=== PATIENT | female | born 1980 | race Caucasian/White ===

== ENCOUNTER → 2019-07-15 09:30 | Outpatient (BNVA) | payer OTHER, SELFPAY | PROVIDERS: Family Provider Nurse Practitioner Family; Referring Provider Family Medicine; Visit Provider Family Medicine | DX: Z01.419 Encounter for gynecological examination (general) (routine) without abnormal findings (principal); F41.1 Generalized anxiety disorder; Z13.6 Encounter for screening for cardiovascular disorders | CPT/HCPCS: 88175 ==

== ENCOUNTER 2019-08-03 04:40 | Observation (INO) | payer OTHER, SELFPAY ==
[2019-08-03] VITALS (18 sets, daily range): BP systolic 110–145; BP diastolic 56–97; PULSE 60–102; RESP 15–20; TEMP 36.6–36.9; O2SAT 90–100; BMI 34.3
--- NOTE | 2019-08-03 04:55 | US_ITS ---
WS: [id number] RIGHT UPPER QUADRANT ULTRASOUND HISTORY: Pain COMPARISON: None available. Liver: 19.5 cm in length. Liver is moderately enlarged with a slightly irregular surface. No intrahep atic dilatation or mass. Gallbladder: Normally distended gallbladder are numerous mobile stones are present in the lumen. Ther e are several stones at the neck of the gallbladder which may be entrapped. CBD: 0.6 cm Pancreas: Completely obscured by bowel gas. Right kidney: 10.2 cm in length. Normal echogenicity with no mass or hydronephrosis. Aorta and IVC: Unremarkable. No ascites. US/US gall bladder 23240 IMPRESSION: 1. Cholelithiasis with at least one stone entrapped at the gallbladder neck. A t this time there is no evidence for acute cholecystitis or bile duct dilatatio n. 2. Moderate hepatomegaly.
--- NOTE | 2019-08-03 04:55 | W.ED.ABDPA2 ---
Documented by User: Christal Pandya 08/03/19 05:29 HPI - Abdominal Pain General: Chief Complaint: Abdominal Pain Stated Complaint: ABD pain Time Seen by Provider: 08/03/19 04:50 History of Present Illness: HPI narrative: Cat is a nice 39-year-old female who comes in complaining of epigastric and right upper quadrant abdominal pain. She states she is had this pain numerous times in the past. She gets them mostly at night usually 1-2 episodes per month. Tonight symptoms were much worse she has had associated nausea and vomiting. She denies any chest pain or shortness of breath. She denies any diarrhea or constipation. She is never had this pain evaluated. She is unaware of anything that makes her pain better or worse. Associated Symptoms: Reports nausea and vomiting; Denies chills, coffee ground emesis, constipation, GI cramping, diarrhea, dysuria, fever(s), heartburn, hematochezia, hematuria, hematemesis, melena and syncope Review of Systems Const: Denies: fever(s), chills, body aches, fatigue, malaise or diaphoresis Eyes: Denies: change in vision, blurry vision, blind spots or photophobia ENMT: Denies: throat pain, odynophagia, hoarseness, swelling of lips/tongue, ear or mastoid pain, ear discharge, change in hearing or nasal discharge Card: Denies: chest pain, palpitations, irregular heart rhythm, edema, lightheadedness, syncope, pre-syncope, dyspnea on exertion or orthopnea Resp: Denies: dyspnea, productive cough, non-productive cough, wheezing, hemoptysis or chest congestion GI: Reports: abdominal pain, nausea and vomiting; Denies: hematemesis, coffee ground emesis, heartburn, diarrhea, constipation, GI cramping, hematochezia or melena : Denies: flank pain, dysuria, urinary frequency, urinary urgency or hematuria Musc: Denies: neck pain, back pain, extremity pain, extremity swelling, joint pain, joint swelling, joint redness, joint warmth or joint stiffness Skin/Breast: Denies: rash, pruritus, erythema, skin tenderness or jaundice Neuro: Denies: headache(s), numbness in extremities, weakness in extremities, sensory changes, lack of coordination, difficulty walking, dizziness, vertigo, confusion or Slurred speech present Ki/Lymph: Denies: easy bruising, easy bleeding, petechiae, purpura or enlarged lymph nodes All/Imm: Denies: urticaria, throat swelling, tongue swelling, facial swelling or acute wheezing PFSH ED PFSH: Medical History MULUGETA (generalized anxiety disorder) No pertinent past medical history Surgical History No history of previous surgery No pertinent past surgical history Social History Smoking and tobacco status: never smoked Alcohol intake: never Physical Exam Const: COMMON NORMALS: no acute distress, patient oriented x3, no limitations, healthy appearing and well nourished GENERAL APPEARANCE: cooperative, well kempt and well developed HENMT: COMMON NORMALS: normocephalic, atraumatic, hearing grossly normal bilaterally, external ears normal, EAC's normal, Normal external nose present and moist oral mucous membranes HEAD & SCALP: normocephalic and atraumatic NOSE: Normal external nose present and Normal nares present EXTERNAL EAR: Yes external ears normal EXTERNAL AUDITORY CANAL: EAC's normal MOUTH: Normal oral and palatal mucosa present, lip normal and tongue normal Eye: COMMON NORMALS: Equal, round and reactive pupils present, EOMs intact bilaterally, conjunctivae normal and no scleral icterus GENERAL EYE: appearance normal, both eyes and all related structures ALIGNMENT: Yes alignment normal PERIORBITAL: periorbital findings normal EYELID: eyelids normal CONJUNCTIVA: Yes conjunctivae normal SCLERA: sclerae normal PUPIL: Yes Equal, round and reactive pupils present Neck/C-Spine: COMMON NORMALS: full ROM, no lymphadenopathy, supple, no meningeal signs and no JVD GENERAL: Yes normal visual inspection and Yes trachea midline Chest: COMMONS NORMALS: normal inspection of the chest and normal palpation of entire chest wall Resp: COMMON NORMALS: normal respiratory effort, No retractions, No use of accessory muscles and clear to auscultation bilaterally EFFORT & INSPECTION: Yes able to speak in complete sentences and Yes symmetric chest movement AUSCULTATION: clear to auscultation bilaterally, no crackles, no rales, no rhonchi and no wheezes Cardio: COMMON NORMALS: no JVD, regular rate, regular rhythm, S1 normal heart sound present, S2 normal heart sound present, No gallops present (Cardio), No clicks present (Cardio), No murmurs present (Cardio) and No rub (Cardio) RATE: regular rate RHYTHM: regular rhythm HEART SOUNDS: S1 normal heart sound present and S2 normal heart sound present GI: COMMON NORMALS: Soft to palpation and No hepatosplenomegaly present PALPATION: Yes Soft to palpation, Yes Tenderness to palpation present (GI) (Epigastric and right upper quadrant -mild without rebound or guarding), No Guarding due to palpation present (GI), No Rigid due to palpation, Yes No hepatosplenomegaly present, No Hernia present, No Palpable mass present and No Pulsatile mass present : COMMON NORMALS: Yes no CVA tenderness BLADDER/KIDNEY EXAM: Yes no CVA tenderness EXTERNAL FEMALE EXAM: No Hernia present Back/Pelvis: COMMON NORMALS: no CVA tenderness, thoracic and lumbar spine normal to inspection, no thoracic nor lumbar tenderness and thoraco-lumbar ROM normal Extremity: COMMON NORMALS: normal to inspection, full ROM, capillary refill normal, no joint enlargement, no clubbing, cyanosis or edema and no calf tenderness Neuro: COMMON NORMALS: patient oriented x3, CN's II-XII intact bilaterally, moves all extremities, no focal motor deficits and no sensory deficits noted MENINGEAL SIGNS: Yes no meningeal signs SPEECH: speech normal Psych: COMMON NORMALS: mental status grossly normal, Normal thought process present, cooperative, normal affect, speech normal and activity/motor behavior normal APPEARANCE: Yes well kempt SPEECH: Yes normal speech THOUGHT PROCESS: Normal thought process present Skin: COMMON NORMALS: no rashes or lesions noted, turgor normal, no jaundice, no petechiae and no mottling GENERAL SKIN EXAM: no rashes or lesions noted and turgor normal Course Vital Signs: Vital signs: Vital Signs Temperature 98.2 F 08/03/19 04:47 Pulse Rate 78 08/03/19 05:36 Respiratory Rate 18 08/03/19 05:36 Blood Pressure 140/83 08/03/19 05:36 Pulse Oximetry 97 08/03/19 05:36 MDM - Abdominal Pain Lab Data: Labs: Lab Results 08/03/19 08/03/19 08/03/19 Range/Units 05:30 05:30 05:30 WBC 8.3 (4.0-10.0) 10^3/ uL RBC 4.37 (4.1-5.3) 10^6/u L Hgb 9.0 L (11.5-15.3) g/dL Hct 31.8 L (37.0-47.0) % MCV 72.8 L (81-99) fL MCH 20.6 L (28.0-34.0) pg MCHC 28.3 L (30.0-36.0) g/dL RDW 16.0 H (12.1-15.1) % Plt Count 417 H (130-400) 10^3/c mm MPV 9.7 (7.4-10.4) fL Neut % (Auto) 55.9 % Lymph % (Auto) 33.7 % Ripley % (Auto) 6.4 % Eos % (Auto) 2.8 % Baso % (Auto) 0.8 % Neut # (Auto) 4.7 (1.8-7.7) 10^3/u L Lymph # (Auto) 2.8 (0.8-4.8) 10^3/u L Ripley # (Auto) 0.5 (0.2-0.9) 10^3/u L Eos # (Auto) 0.2 (0.0-0.8) 10^3/u L Baso # (Auto) 0.1 (0.0-0.1) 10^3/u L Nucleated RBC % (a uto) 0 % Nucleated RBCs # 0.0 /100WBC Sodium 136 (136-145) mmol/L Potassium 4.1 (3.5-5.1) mmol/L Chloride 100 (98-107) mmol/L Carbon Dioxide 25 (22-29) mmol/L Anion Gap 15.1 (5-19) BUN 7 (6-20) mg/dL Creatinine 1.0 H (0.5-0.9) mg/dL GFR Calculation 62.4 L (90-130) mL/min Glucose 113 (65-115) mg/dL Calculated Osmolal ity 279 L (285-295) mOsm/k g Calcium 9.8 (8.5-10.5) mg/dL Total Bilirubin 0.3 (0.15-1.2) mg/dL AST 18 (0-32) U/L ALT 15 (0-33) U/L Alkaline Phosphata se 93 (35-105) IU/L Troponin T Baselin e (0-10) ng/mL Total Protein 7.4 (6.6-8.7) g/dL Albumin 4.4 (3.5-5.2) g/dL Globulin 3.0 (1.3-4.6) g/dL Lipase 36 (13-60) U/L HCG, Qual Negative (Negative) 08/03/19 Range/Units 05:30 WBC (4.0-10.0) 10^3/ uL RBC (4.1-5.3) 10^6/u L Hgb (11.5-15.3) g/dL Hct (37.0-47.0) % MCV (81-99) fL MCH (28.0-34.0) pg MCHC (30.0-36.0) g/dL RDW (12.1-15.1) % Plt Count (130-400) 10^3/c mm MPV (7.4-10.4) fL Neut % (Auto) % Lymph % (Auto) % Ripley % (Auto) % Eos % (Auto) % Baso % (Auto) % Neut # (Auto) (1.8-7.7) 10^3/u L Lymph # (Auto) (0.8-4.8) 10^3/u L Ripley # (Auto) (0.2-0.9) 10^3/u L Eos # (Auto) (0.0-0.8) 10^3/u L Baso # (Auto) (0.0-0.1) 10^3/u L Nucleated RBC % (a uto) % Nucleated RBCs # /100WBC Sodium (136-145) mmol/L Potassium (3.5-5.1) mmol/L Chloride (98-107) mmol/L Carbon Dioxide (22-29) mmol/L Anion Gap (5-19) BUN (6-20) mg/dL Creatinine (0.5-0.9) mg/dL GFR Calculation (90-130) mL/min Glucose (65-115) mg/dL Calculated Osmolal ity (285-295) mOsm/k g Calcium (8.5-10.5) mg/dL Total Bilirubin (0.15-1.2) mg/dL AST (0-32) U/L ALT (0-33) U/L Alkaline Phosphata se (35-105) IU/L Troponin T Baselin e 6 (0-10) ng/mL Total Protein (6.6-8.7) g/dL Albumin (3.5-5.2) g/dL Globulin (1.3-4.6) g/dL Lipase (13-60) U/L HCG, Qual (Negative) EKG Data ^: EKG 1: Attestation: I personally reviewed and interpreted this EKG as follows: EKG interpretation date: 08/03/19 EKG interpretation time: 05:12 Interpretation: Normal sinus rhythm at 67 beats a minute, LVH, nonspecific ST and T wave changes. Discharge Plan Discharge Patient Disposition: Admitted As Inpatient Clinical Impression: Acute cholecystitis Cholelithiasis Qualifiers: Cholelithiasis location: gallbladder and bile duct Cholecystitis presence: with cholecystitis Cholecystitis acuity: acute Biliary obstruction: without biliary obstruction Qualified Code(s): K80.62 - Calculus of gallbladder and bile duct with acute cholecystitis without obstruction Condition: Fair Sign Out Sign Out Data: Patient Sign Out occurred on 08/03/19 at 06:00. Patient's care was discussed, and care was transferred from to Christiano Fletcher. Coding Level of Care Code ED Laminated Plastics Assembler And Gluer for Chg Fwd Exam Comprehensive Documented by User: Christiano Fletcher DO 08/03/19 06:27 HPI - Abdominal Pain General: Chief Complaint: Abdominal Pain Stated Complaint: ABD pain Time Seen by Provider: 08/03/19 04:50 PFSH ED PFSH: Medical History MULUGETA (generalized anxiety disorder) No pertinent past medical history Surgical History No history of previous surgery No pertinent past surgical history Social History Smoking and tobacco status: never smoked Alcohol intake: never Course Vital Signs: Vital signs: Vital Signs Temperature 98.2 F 08/03/19 04:47 Pulse Rate 78 08/03/19 05:36 Respiratory Rate 18 08/03/19 05:36 Blood Pressure 140/83 08/03/19 05:36 Pulse Oximetry 97 08/03/19 05:36 MDM - Abdominal Pain Lab Data: Labs: Lab Results 08/03/19 08/03/19 08/03/19 Range/Units 05:30 05:30 05:30 WBC 8.3 (4.0-10.0) 10^3/ uL RBC 4.37 (4.1-5.3) 10^6/u L Hgb 9.0 L (11.5-15.3) g/dL Hct 31.8 L (37.0-47.0) % MCV 72.8 L (81-99) fL MCH 20.6 L (28.0-34.0) pg MCHC 28.3 L (30.0-36.0) g/dL RDW 16.0 H (12.1-15.1) % Plt Count 417 H (130-400) 10^3/c mm MPV 9.7 (7.4-10.4) fL Neut % (Auto) 55.9 % Lymph % (Auto) 33.7 % Ripley % (Auto) 6.4 % Eos % (Auto) 2.8 % Baso % (Auto) 0.8 % Neut # (Auto) 4.7 (1.8-7.7) 10^3/u L Lymph # (Auto) 2.8 (0.8-4.8) 10^3/u L Ripley # (Auto) 0.5 (0.2-0.9) 10^3/u L Eos # (Auto) 0.2 (0.0-0.8) 10^3/u L Baso # (Auto) 0.1 (0.0-0.1) 10^3/u L Nucleated RBC % (a uto) 0 % Nucleated RBCs # 0.0 /100WBC Sodium 136 (136-145) mmol/L Potassium 4.1 (3.5-5.1) mmol/L Chloride 100 (98-107) mmol/L Carbon Dioxide 25 (22-29) mmol/L Anion Gap 15.1 (5-19) BUN 7 (6-20) mg/dL Creatinine 1.0 H (0.5-0.9) mg/dL GFR Calculation 62.4 L (90-130) mL/min Glucose 113 (65-115) mg/dL Calculated Osmolal ity 279 L (285-295) mOsm/k g Calcium 9.8 (8.5-10.5) mg/dL Total Bilirubin 0.3 (0.15-1.2) mg/dL AST 18 (0-32) U/L ALT 15 (0-33) U/L Alkaline Phosphata se 93 (35-105) IU/L Troponin T Baselin e (0-10) ng/mL Total Protein 7.4 (6.6-8.7) g/dL Albumin 4.4 (3.5-5.2) g/dL Globulin 3.0 (1.3-4.6) g/dL Lipase 36 (13-60) U/L HCG, Qual Negative (Negative) 08/03/19 Range/Units 05:30 WBC (4.0-10.0) 10^3/ uL RBC (4.1-5.3) 10^6/u L Hgb (11.5-15.3) g/dL Hct (37.0-47.0) % MCV (81-99) fL MCH (28.0-34.0) pg MCHC (30.0-36.0) g/dL RDW (12.1-15.1) % Plt Count (130-400) 10^3/c mm MPV (7.4-10.4) fL Neut % (Auto) % Lymph % (Auto) % Ripley % (Auto) % Eos % (Auto) % Baso % (Auto) % Neut # (Auto) (1.8-7.7) 10^3/u L Lymph # (Auto) (0.8-4.8) 10^3/u L Ripley # (Auto) (0.2-0.9) 10^3/u L Eos # (Auto) (0.0-0.8) 10^3/u L Baso # (Auto) (0.0-0.1) 10^3/u L Nucleated RBC % (a uto) % Nucleated RBCs # /100WBC Sodium (136-145) mmol/L Potassium (3.5-5.1) mmol/L Chloride (98-107) mmol/L Carbon Dioxide (22-29) mmol/L Anion Gap (5-19) BUN (6-20) mg/dL Creatinine (0.5-0.9) mg/dL GFR Calculation (90-130) mL/min Glucose (65-115) mg/dL Calculated Osmolal ity (285-295) mOsm/k g Calcium (8.5-10.5) mg/dL Total Bilirubin (0.15-1.2) mg/dL AST (0-32) U/L ALT (0-33) U/L Alkaline Phosphata se (35-105) IU/L Troponin T Baselin e 6 (0-10) ng/mL Total Protein (6.6-8.7) g/dL Albumin (3.5-5.2) g/dL Globulin (1.3-4.6) g/dL Lipase (13-60) U/L HCG, Qual (Negative) Discharge Plan Discharge Patient Disposition: Admitted As Inpatient Clinical Impression: Acute cholecystitis Cholelithiasis Qualifiers: Cholelithiasis location: gallbladder and bile duct Cholecystitis presence: with cholecystitis Cholecystitis acuity: acute Biliary obstruction: without biliary obstruction Qualified Code(s): K80.62 - Calculus of gallbladder and bile duct with acute cholecystitis without obstruction Condition: Fair Sign Out Sign Out Data: Patient Sign Out occurred on 08/03/19 at 06:00. Patient's care was discussed, and care was transferred from to Christiano Fletcher. Coding Level of Care Code ED Laminated Plastics Assembler And Gluer for [facility] Fwd Exam Comprehensive
[2019-08-03] MEDS: ondansetron 2 mg/ML SDV 2 mL 4 MG IVP (05:31)
[2019-08-03] MEDS: lactated ringers 1,000 ML 999 ML IV (05:31)
[2019-08-03] MEDS: morphine 4 mg/mL SDV 1 mL IVP (05:32)
[2019-08-03 05:48] LABS: Basophils # 0.1 10^3/uL (0.0-0.1); Basophils % 0.8 %; Eosinophils # 0.2 10^3/uL (0.0-0.8); Eosinophils % 2.8 %; Hematocrit 31.8 % (37.0-47.0); Lymphocytes # 2.8 10^3/uL (0.8-4.8); Lymphocytes % 33.7 %; Mean Corpuscular HGB Conc 28.3 g/dL (30.0-36.0); Mean Corpuscular Hemoglobin 20.6 pg (28.0-34.0); Mean Corpuscular Volume 72.8 fL (81-99); Mean Platelet Volume 9.7 fL (7.4-10.4); Monocytes # 0.5 10^3/uL (0.2-0.9); Monocytes % 6.4 %; Neutrophils # 4.7 10^3/uL (1.8-7.7); Neutrophils % 55.9 %; Nucleated Red Blood Cells % 0 %; Platelet Count 417 10^3/cmm (130-400); Red Blood Count 4.37 10^6/uL (4.1-5.3); White Blood Count 8.3 10^3/uL (4.0-10.0)
[2019-08-03 05:55] LABS: HCG, Serum Qual Negative (Negative)
[2019-08-03 06:00] LABS: Alanine Aminotransferase 15 U/L (0-33); Albumin Level 4.4 g/dL (3.5-5.2); Alkaline Phosphatase 93 IU/L (35-105); Anion Gap 15.1 (5-19); Aspartate Amino Transferase 18 U/L (0-32); Blood Urea Nitrogen 7 mg/dL (6-20); Calcium 9.8 mg/dL (8.5-10.5); Carbon Dioxide 25 mmol/L (22-29); Chloride 100 mmol/L (98-107); Glomerular Filtration Rate 62.4 mL/min (90-130); Glucose 113 mg/dL (65-115); Lipase 36 U/L (13-60); Osmolality Calculated 279 mOsm/kg (285-295); Potassium 4.1 mmol/L (3.5-5.1); Sodium 136 mmol/L (136-145); Total Bilirubin 0.3 mg/dL (0.15-1.2); Total Protein 7.4 g/dL (6.6-8.7)
[2019-08-03 06:02] LABS: Troponin(5th) Baseline 6 ng/mL (0-10)
[2019-08-03 06:34] LABS: Bilirubin Urine Neg (NEGATIVE); Blood Urine Neg (Negative); Glucose Urine UA Norm (Normal); Ketones Urine Negative (Negative); Leukocyte Esterase Urine Negative (Negative); Nitrate Urine Negative (Negative); Protein Urine Neg (Negative); Urine Appearance Cloudy (CLEAR); Urine Color Yellow (Yellow); Urobilinogen Urine Norm (Negative); pH Urine 8 (5-7)
[2019-08-03 06:41] LABS: H. Pylori IgG Antibody Positive (Negative)
[2019-08-03 06:44] LABS: Add Urine Culture? No; Amorphous Sediment Urine 1+; Bacteria Urine 2+; Squamous Epithelial Cell Urine 0-4 (0-5)
[2019-08-03] MEDS: sodium chloride 0.9% 1,000 ML 150 ML IV ×2 (06:46→12:49)
[2019-08-03] MEDS: piperacillin-tazobactam 3.375 GM in sodium chloride 0.9% (plus) 50 ML IV ×2 (06:47→13:46)
--- NOTE | 2019-08-03 07:24 | P.HP_ITS ---
Providers/Chief Complaint Admitting Physician: Hamzah Walters MD Chief Complaint: ABD pain History of Present Illness Cat Donald is a 39 year old female who has been having problems with intermittent right upper quadrant abdominal pain for the past 6 months. She says after she eats, particularly greasy foods, she will develop right upper quadrant pain that goes around to the right side of her back. These episodes are associated with nausea and vomiting without evidence of hematemesis. The patient feels very gassy and bloated and belchy during the episodes. She came to the emergency room last night with the worst episode that I have had. An ultrasound revealed cholelithiasis with borderline gallbladder wall thickening and a stone apparently stuck in the neck of the gallbladder. In addition, the patient has been experiencing gastroesophageal reflux symptoms over the same time. She describes heartburn. She actually started taking omeprazole every day about 4 months ago and says while her heartburn symptoms are better, she continues to have some reflux symptoms at times. In addition, the above symptoms (which I think are attributable to biliary colic) have not improved. When she came to the emergency room, a serum Helicobacter antibody test was done and was positive. She has no known history of peptic ulcer disease. She denies any regular NSAID use. She does drink quite a bit of caffeine at times, however. Review of Systems General: Reports: 10 or more systems reviewed and unremarkable except in HPI and below Const: Denies: fever(s) GI: Denies: change in bowel habits or melena Psych: Reports: anxiety Medications/Allergies Home Medications Medication Instructions Recorded Confirmed Last Taken Type omeprazole 20 mg tablet,delayed 20 mg PO DAILY 06/16/19 07/15/19 Unknown History release sertraline 50 mg tablet 50 mg PO DAILY #90 tab 07/15/19 07/15/19 Unknown Rx fluconazole 150 mg tablet 150 mg PO .now and in 1 week #2 tab 07/19/19 Unknown Rx Allergies Allergy/AdvReac Type Severity Reaction Status Date / Time No Known Allergies Allergy Unverified 07/15/19 09:08 PFSH Acute PFSH: Medical History (Updated 08/03/19 @ 11:58 by Hamzah Walters MD) MULUGETA (generalized anxiety disorder) GERD (gastroesophageal reflux disease) Surgical History (Updated 08/03/19 @ 07:53 by Hamzah Walters MD) No pertinent past surgical history Social History (Updated 08/03/19 @ 11:52 by Hamzah Walters MD) Smoking and tobacco status: never smoked Alcohol intake: current Alcohol use comment: Occasional Female Reproductive History: : 4 Vitals/I&O/Wt Last Vital Signs Temp 98.2 F 08/03/19 04:47 Pulse 78 08/03/19 06:49 Resp 18 08/03/19 06:49 BP 130/65 08/03/19 06:49 Pulse Ox 98 08/03/19 06:49 08/02/19 08/03/19 08/03/19 22:59 06:59 14:59 Intake Total 1000 / 1000 Balance 1000 / 1000 Weight last 48 hrs Weight 200 lb Physical Exam Narrative: EXAM NARRATIVE: The patient was encountered in her hospital room. She does not appear to be in any acute distress. The pupils are equal. No carotid bruits are heard. The lungs are clear anteriorly. The heart is regular. The abdomen is moderately obese but is soft. The patient does have some moderate tenderness in the right upper quadrant with an equivocal Montgomery's sign. No obvious masses are palpated. She has less tenderness in the epigastr ium. The extremities reveal no edema. Neurologically the patient appears to be grossly intact. Data : 08/03/19 05:30 08/03/19 05:30 Other Labs: Laboratory Tests 08/03/19 08/03/19 05:30 05:30 Total Bilirubin 0.3 AST 18 ALT 15 Alkaline Phosphatase 93 Lipase 36 H. pylori IgG Antibody Positive H US: Radiologist's impression: Right upper quadrant iMPRESSION: 1. Cholelithiasis with at least one stone entrapped at the gallbladder neck. At this time there is no evidence for acute cholecystitis or bile duct dilatation. 2. Moderate hepatomegaly. A&P Assessment and plan (1) Acute cholecystitis due to biliary calculus: There is little question that the patient has been having symptoms of biliary colic. She may be developing early acute cholecystitis as evidenced by the recent attack and the stone in the neck of her gallbladder on ultrasound, although she appears to be symptomatically improved at this time. I discussed gallbladder surgery in some detail with her. Risks of surgery including bleeding, infection, internal organ injury, etc. were all gone over. She is anxious to proceed. Status: Acute (2) Helicobacter pylori antibody positive: The patient's other issue is her ongoing GERD symptoms and her positive Helicobacter antibody test. In addition, she is anemic. Given all of these factors, I told her that I would also recommend she have an EGD at some point. We could do this prior to gallbladder surgery, after gallbladder surgery, or at the same time to see if she needed to be on treatment for Helicobacter. She is in favor of having this done at the same time as her cholecystectomy. I will make the necessary arrangements. Status: Acute (3) GERD (gastroesophageal reflux disease): Status: Acute (4) Anemia: Status: Acute Attestations Medical Necessity Statement*: Based on my medical assessment, presenting symptoms and consideration of the scope of surgical therapy, I expect this patient will require treatment in the hospital for a period of time spanning less than 2 midnights, and is therefore being placed in observation status. Coding Level of Care Code Acute Ion Implant Machine Operator for [facility] Fwd Diagnoses Acute cholecystitis due to biliary calculus K80.00 Helicobacter pylori antibody positive R76.8 GERD (gastroesophageal reflux disease) K21.9 Anemia D64.9
[2019-08-03 08:19] LABS: Troponin 5 2HR 6.13 ng/mL (0-10); Troponin 5 2HR Delta 0.13 ABS# (0-10)
--- NOTE | 2019-08-03 11:36 | PC.CHAP ---
Pastoral Care Encounter/Spiritual Assessment Type of Contact [] Declined physician specialist visit [] Patient/Family/Request visit [] Outpatient visit [] Follow-up visit [] Physician referral [] Code/Alert [x] Routine visit [] Staff referral [] Actively dying [] Patient sleeping [] Family support [] [] Out of room [] Palliative care [] [x] Receiving care in room [] Pre-surgical visit [] Trauma [] Long length of stay [] ICU visit [] Other: Relational/Emotional Strength [x] Patient feels connected with others/family/visitors/staff [] Distress [] Loneliness/isolation [] Abandonment Spirituality of Patient [x] Person of Cora [] Attends Rastafarian of their Cora [x] Believes in Prayer [] Reads Bible or Buddhist materials [] There are Spiritual issues to be addressed Physician Practice Consultant Interventions [x] Prayer [x] Active listening [x] Non-anxious presence [x] Spiritual/emotional support [] Crisis/trauma care [x] Spiritual counseling [] Bereavement support [] Provided bereavement packet [] Provided Bible/devotional materials [] Provided toy/stuffed animal, coloring book to patient or family member [] Provided Communion [] Anointing/Irene [] Salvation [x] Completed spiritual assessment [] Other: Impact on Illness or Injury [] Angry [] Fearful [x] Anxious [] Often cries [] Exhaustion [] Unable to work [] Unable to attend church [] Unable to walk/stand [] Unable to read [] Unable to drive [] Unable to eat/drink [] Unable to sleep [] Unable to be with family [] Patient intubated [] Other: Summary ABD PAIN had surgery today feeling better, had a good attitude, looking for daniel to going home Time spent with patient 10 mins
--- NOTE | 2019-08-03 13:22 | P.ANESASSM_ITS ---
Pre-Anesthetic Assessment Pre-Anesthetic Assessment: Height/Weight: Height 1.63 m Weight 90.718 kg Temp Pulse Resp BP Pulse Ox 97.8 F 62 18 121/77 100 08/03/19 11:11 08/03/19 11:11 08/03/19 11:11 08/03/19 11:11 08/03/19 11:11 Proposed Procedure: Operation Date: 08/03/19 16:20 Proposed Procedures p Laparoscopic Cholecystectomy, poss open(Not Applicable) - Hamzah Walters MD s EGD(Not Applicable) - Hamzah Walters MD Social: Social History: Alcohol (occ) and No tobacco Exam: Pre-Anes Outpt Exam: alert, oriented x 3, clear to auscultation bilaterally and regular rate & rhythm Airway: Submandibular: WNL Cervical ROM: WNL MP: 3 Dentition: Other (teeth ok) History/ROS: No significant history except as noted Pulmonary: Pulmonary: None reported CV/HEM: CV/HEM: None reported : : None reported Hepatic: Hepatic: None reported GI: GI: GERD Metabolic: Metabolic: None reported Musc/skel: Musc/skel: None reported Neuropsych: Neuropsych: Anxiety and Depression Anesthetic Plan: ASA status: 2 Anesthesia: Anesthesia Evaluation and General Risk of > 500 ml blood loss (7ml/kg in children): No Meds/Allergies Current Medications: Current Medications Generic Name Dose Route Start Last Admin Trade Name Freq PRN Reason Stop Dose Admin Sodium Chloride 1,000 mls @ 150 m ls/hr 08/03/19 06:30 08/03/19 12:49 Sodium Chloride 0.9% IV 150 mls/hr .[id number] JUAN MANUEL Administration PFSH Anesthesia PFSH: Medical History (Updated 08/03/19 @ 11:58 by Hamzah Walters MD) MULUGETA (generalized anxiety disorder) GERD (gastroesophageal reflux disease) Surgical History (Updated 08/03/19 @ 07:53 by Hamzah Walters MD) No pertinent past surgical history Social History (Updated 08/03/19 @ 11:52 by Hamzah Walters MD) Smoking and tobacco status: never smoked Alcohol intake: current Alcohol use comment: Occasional Female Reproductive History: : 4 Data Anesthesia CBC & Chem 7: 08/03/19 05:30 08/03/19 05:30 Other Labs: Laboratory Results - last 48 hr 08/03/19 08/03/19 08/03/19 05:30 05:30 05:30 WBC 8.3 RBC 4.37 Hgb 9.0 L Hct 31.8 L MCV 72.8 L MCH 20.6 L MCHC 28.3 L RDW 16.0 H Plt Count 417 H MPV 9.7 Neut % (Auto) 55.9 Lymph % (Auto) 33.7 [place] % (Auto) 6.4 Eos % (Auto) 2.8 Baso % (Auto) 0.8 Neut # (Auto) 4.7 Lymph # (Auto) 2.8 [place] # (Auto) 0.5 Eos # (Auto) 0.2 Baso # (Auto) 0.1 Nucleated RBC % (auto) 0 Nucleated RBCs # 0.0 Sodium 136 Potassium 4.1 Chloride 100 Carbon Dioxide 25 Anion Gap 15.1 BUN 7 Creatinine 1.0 H GFR Calculation 62.4 L Glucose 113 Calculated Osmolality 279 L Calcium 9.8 Total Bilirubin 0.3 AST 18 ALT 15 Alkaline Phosphatase 93 Troponin T Baseline Troponin T 120 Minute Delta Troponin T Total Protein 7.4 Albumin 4.4 Globulin 3.0 Lipase 36 HCG, Qual Urine Color Urine Appearance Urine pH Ur Specific [place] Urine Protein Urine Glucose (UA) Urine Ketones Urine Blood Urine Nitrate Urine Bilirubin Urine Urobilinogen Ur Leukocyte Esterase Urine RBC Urine WBC Ur Squamous Epith Cells Amorphous Sediment Urine Bacteria H. pylori IgG Antibody Positive H 08/03/19 08/03/19 08/03/19 05:30 05:30 06:10 WBC RBC Hgb Hct MCV MCH MCHC RDW Plt Count MPV Neut % (Auto) Lymph % (Auto) [place] % (Auto) Eos % (Auto) Baso % (Auto) Neut # (Auto) Lymph # (Auto) [place] # (Auto) Eos # (Auto) Baso # (Auto) Nucleated RBC % (auto) Nucleated RBCs # Sodium Potassium Chloride Carbon Dioxide Anion Gap BUN Creatinine GFR Calculation Glucose Calculated Osmolality Calcium Total Bilirubin AST ALT Alkaline Phosphatase Troponin T Baseline 6 Troponin T 120 Minute Delta Troponin T Total Protein Albumin Globulin Lipase HCG, Qual Negative Urine Color Yellow Urine Appearance Cloudy Urine pH 8 H Ur Specific [place] 1.010 Urine Protein Neg Urine Glucose (UA) Norm Urine Ketones Negative Urine Blood Neg Urine Nitrate Negative Urine Bilirubin Neg Urine Urobilinogen Norm Ur Leukocyte Esterase Negative Urine RBC None Urine WBC None Ur Squamous Epith Cells 0-4 H Amorphous Sediment 1+ Urine Bacteria 2+ H H. pylori IgG Antibody 08/03/19 07:42 WBC RBC Hgb Hct MCV MCH MCHC RDW Plt Count MPV Neut % (Auto) Lymph % (Auto) [place] % (Auto) Eos % (Auto) Baso % (Auto) Neut # (Auto) Lymph # (Auto) [place] # (Auto) Eos # (Auto) Baso # (Auto) Nucleated RBC % (auto) Nucleated RBCs # Sodium Potassium Chloride Carbon Dioxide Anion Gap BUN Creatinine GFR Calculation Glucose Calculated Osmolality Calcium Total Bilirubin AST ALT Alkaline Phosphatase Troponin T Baseline Troponin T 120 Minute 6.13 Delta Troponin T 0.13 Total Protein Albumin Globulin Lipase HCG, Qual Urine Color Urine Appearance Urine pH Ur Specific [place] Urine Protein Urine Glucose (UA) Urine Ketones Urine Blood Urine Nitrate Urine Bilirubin Urine Urobilinogen Ur Leukocyte Esterase Urine RBC Urine WBC Ur Squamous Epith Cells Amorphous Sediment Urine Bacteria H. pylori IgG Antibody Cardiac Studies: No Data to Display
[2019-08-03] MEDS: sodium chloride 0.9% 1,000 ML 30 ML IV (15:55)
--- NOTE | 2019-08-03 17:43 | SUR.PHASEI ---
9802 PATIENT TO PACU AT THIS TIME FROM OR. NO DISTRESS. PATIENT THRASHING ON GURNEY. PATIENT REORIENTED AND CALMED.ORAL AIRWAY IN PLACE. SPO2 100% ON SIMPLE MASK. 4 INCISIONS TO ABDOMEN, CDI.
--- NOTE | 2019-08-03 17:44 | SUR.PHASEI ---
1736 ORAL AIRWAY REMOVED. SPO2 100% ON SIMPLE MASK.
--- NOTE | 2019-08-03 17:47 | P.OP_ITS ---
Operative Report Date of procedure: August 03, 2019 Pre-op Diagnosis: 1. Positive H. pylori serum antibody, anemia and GERD.2. Early acute calculus cholecystitis. Post-op diagnosis: same Procedure Done: 1. EGD with biopsies. 2. Laparoscopic cholecystectomy. Pathology: 1. Gastric biopsy/CLOtest. 2. Gallbladder. Surgeon: Hamzah Walters Anesthesia: General Estimated blood loss (mL): 10 Complications: None. Condition: stable Disposition: PACU Procedure: The patient was brought to the Operating Room and was placed in a supine position on the Operating Room table. General endotracheal anesthesia was induced. An EGD was then carried out with the patient in a supine position. She had no evidence of gastritis or bleeding but had somewhat of a granular appearance to the mucosa in the antrum. Given her positive H. pylori serum antibody test, a CLOtest was performed and an additional antral biopsy was sent for pathology. See endoscopy report for details. The abdomen was then prepped and draped in a sterile fashion. A small vertical incision was carried out in the inferior aspect of the umbilicus. Blunt dissection was carried out down to the fascia, which was g rasped with a Angeli clamp. A stay suture of 0 Vicryl was placed on either side of the midline and the midline fascia was incised. The underlying peritoneum was opened bluntly and the Lizeth port was placed directly into the peritoneal cavity and was held in place with the inflatable balloon. The peritoneal cavity was insufflated with carbon dioxide. The laparoscope was used to inspect the abdominal cavity. No gross abnormalities were initially noted. A 5 millimeter port was placed in the epigastrium under direct vision. Two 5-millimeter ports were placed on the right side of the abdomen under direct vision. The gallbladder was grasped and was elevated. Some subacute adhesions were taken down from the fundus and infundibulum of the gallbladder using blunt dissection with some cautery to maintain hemostasis.. The patient clearly had some edema in the wall of the gallbladder, particularly down at the infundibulum. It was found that the patient had a relatively large stone stuck in the infundibulum, most likely occluding the cystic duct. Blunt dissection and hydrodissection were carried out in the infundibular region of the gallbladder and the cystic duct and cystic artery were identified. The gallbladder was partially removed from the liver bed using cautery and the spatula to confirm the anatomy before the structures were clipped and divided. The gallbladder was then removed from the liver bed using cautery and the spatula. After the gallbladder had been removed from the liver bed, the laparoscope was moved to the epigastric port and the gallbladder was removed from the peritoneal cavity through the umbilical port site after being placed in a laparoscopic bag. The stay sutures of Vicryl were tied to each other at the umbilicus. An additional fcgblp-ib-odbis suture of 0 Vicryl was placed, closing the defect so that it was airtight. The perihepatic spaces were irrigated with saline and the liver bed was reinspected. No ongoing problems were seen. The remaining ports were removed from the abdominal wall and the pneumoperitoneum was evacuated. All skin incisions were closed using inverted interrupted sutures of 4-0 Vicryl. Benzoin and Steri-Strips were placed over the incisions and Band-Aids followed. The patient was taken to the Recovery Area in stable condition postoperatively.
--- NOTE | 2019-08-03 17:51 | SUR.PHASEI ---
recieved pt in pacu awake alert talkative taking occ ice chips vss.
--- NOTE | 2019-08-03 18:48 | SUR.PHASEI ---
1807 PT AWAKE ALERT TO FLOOR PER CART PT UP WALKED TO BED WITH ASSIST, PT DENIES PAIN ABD SOFT WITH 4 SITES D/I . FLOOR NURSE TO ROOM AND HANDOFF AT BEDSIDE.
[2019-08-03] MEDS: levalbuterol 0.63 mg/3 mL Neb INHALATION (22:15)
[2019-08-03] MEDS: D5-NS 0.45% + KCL 20 mEq 20 MEQ/1,000 ML BAG 100 MEQ IV (22:43)
[2019-08-03] MEDS: heparin 5,000 unit/mL INJ 1 mL 5000 UNIT SUBCUT (22:43)
[2019-08-04] MEDS: ceFAZolin 1,000 MG in sodium chloride 0.9% (plus) 50 ML 100 MG IV ×2 (01:06→08:50)
[2019-08-04 04:00] VITALS: BP 115/71; PULSE 68; RESP 16; TEMP 36.5; O2SAT 94
[2019-08-04 05:30] VITALS: BP 124/82; PULSE 65; RESP 20; TEMP 36.4; O2SAT 95
[2019-08-04 07:34] VITALS: BP 124/77; PULSE 62; RESP 18; TEMP 36.8; O2SAT 96
--- NOTE | 2019-08-04 07:48 | ANE.PACU2 ---
Inpatient post-anesthesia follow up: Airway intact: Yes Vital signs: Temperature 98.3 F Pulse Rate [Monito r] 85 Pulse Rate 62 Respiratory Rate 18 Blood Pressure [Ri ght Arm] 136/97 Blood Pressure 124/77 Pulse Oximetry 96 Oxygen Delivery Me thod Room Air Oxygen Flow Rate 8 Fraction of Inspir ed Oxygen Hydration adequate: Yes Nausea and vomiting: No Pain level: 3 Mental status: Baseline
[2019-08-04 07:59] LABS: H. Pylori / CLO Test Positive
--- NOTE | 2019-08-04 08:48 | PC.CHAP ---
Pastoral Care Encounter/Spiritual Assessment Type of Contact [] Declined featherer visit [] Patient/Family/Request visit [] Outpatient visit [] Follow-up visit [] Physician referral [] Code/Alert [x] Routine visit [] Staff referral [] Actively dying [] Patient sleeping [] Family support [] [] Out of room [] Palliative care [] [] Receiving care in room [] Pre-surgical visit [] Trauma [] Long length of stay [] ICU visit [] Other: Relational/Emotional Strength [] Patient feels connected with others/family/visitors/staff [] Distress [] Loneliness/isolation [] Abandonment Spirituality of Patient [] Person of Cora [] Attends Jew of their Cora [] Believes in Prayer [] Reads Bible or Adventism materials [] There are Spiritual issues to be addressed Jacquard Card Cutter Interventions [x] Prayer [] Active listening [] Non-anxious presence [] Spiritual/emotional support [] Crisis/trauma care [] Spiritual counseling [] Bereavement support [] Provided bereavement packet [] Provided Bible/devotional materials [] Provided toy/stuffed animal, coloring book to patient or family member [] Provided Communion [] Anointing/[place] [] Salvation [x] Completed spiritual assessment [] Other: Impact on Illness or Injury [] Angry [] Fearful [] Anxious [] Often cries [] Exhaustion [] Unable to work [] Unable to attend zoroastrianism [] Unable to walk/stand [] Unable to read [] Unable to drive [] Unable to eat/drink [] Unable to sleep [] Unable to be with family [] Patient intubated [] Other: Summary Patient states surgery went well, ready to go home today Time spent with patient 10 min
[2019-08-04] MEDS: HYDROcodone-acetaminophen 5-325 mg Tablet PO (08:49)
--- NOTE | 2019-08-04 08:49 | P.DS_ITS ---
Discharge Providers Date of Admission: 08/03/19 06:26 Date of Discharge: August 04, 2019 Attending Provider at Admission: Hamzah Walters MD Attending Provider at Discharge: Hamzah Walters MD Diagnoses at Discharge Discharge Diagnosis (1) Acute cholecystitis due to biliary calculus: Status: Acute Problem details: Status post laparoscopic cholecystectomy. (2) Helicobacter pylori antibody positive: Status: Acute (3) GERD (gastroesophageal reflux disease): Status: Acute (4) Anemia: Status: Acute Problem details: Status post EGD. Reason for Visit Reason for Visit: ABD pain Hospital Course Discharge Summary: This is a 39-year-old white female [facility]. Work-up revealed evidence of probable early acute calculus cholecystitis. The patient also had an ongoing history of biliary colic symptoms at home. In addition, her Helicobacter pylori serum antibody was found to be positive. She was anemic and had a history of GERD. A cholecystectomy and EGD were both discussed with the patient and she wanted to proceed with both procedures. The patient's EGD did not reveal any active peptic ulcer disease, but she did have somewhat of a granular appearance to some of her gastric mucosa and so a biopsy was done in addition to a CLOtest. Her gallbladder showed evidence of acute cholecystitis and was removed. By the following morning the patient was already feeling much better and was anxious to go home. Her wounds looked good. Her abdomen was soft and had good bowel sounds. She was tolerating an oral diet and was passing flatus. She was instructed with respect to wound care, activity limitations, diet, etc. Arrangements were made for the patient to follow-up with me in my office as an outpatient. Physical Exam Narrative: EXAM NARRATIVE: Bowel sounds are present. Incisions look good. The patient has the expected amount of tenderness. Discharge Data Data Completed and Pending: Completed Studies During Hospitalization Category Date Time Status US gall bladder 7 6705 Urgent Ultrasound 08/03/19 04:55 Completed Pending at discharge Category Date Time Status ES surgery / GI i mages Routine Exams 08/03/19 15:21 Ordered H. Pylori / NELLI T est Routine Lab 08/03/19 17:36 Received Pathology: Surgic al [PTH] Routine Pth 08/03/19 17:36 Ordered Labs from last 24 hours 08/03/19 07:42 Delta Troponin T 0.13 Vitals: Last Vital Signs Temp 98.3 F 08/04/19 07:34 Pulse 62 08/04/19 07:34 Resp 18 08/04/19 07:34 BP 124/77 08/04/19 07:34 Pulse Ox 96 08/04/19 07:34 Discharge Plan Discharge Patient Disposition: Home, Self-Care Condition: Fair Prescriptions: New hydrocodone-acetaminophen 5-325 mg tablet 1 - 2 tab PO Q5H PRN (Reason: pain) Qty: 30 RF: 0 Continued omeprazole 20 mg tablet,delayed release (DR/EC) 20 mg PO DAILY RF: 0 sertraline 50 mg tablet 50 mg PO DAILY Qty: 90 RF: 0 loratadine 10 mg PO DAILY RF: 0 Discharge Orders: Discharge Order (Routine); Ordered 08/04/19 Ordered By: Hamzah Walters Referrals: Hamzah Walters MD [Physician] - 08/17/19 1:00 pm Discharge Diet: Advance as tolerated Discharge Activity: Limit activity as instructed Activity Restrictions/Additional Instructions: 1. Discharge to home today. 2. Appointment to see Dr. Walters in 10-14 days as above. 3. Leave Steri-Strip(s) on as discussed, may shower. 4. Calera 5/325 1-2 tablets by mouth every 5 hours as needed for pain. #30, no refills. No lifting over 20 pounds, no repetitive bending or twisting, no strenuous pushing / pulling or other heavy activity. Ambulate regularly. May go up and down steps if needed. Discharge Attestations Time Spent in Discharge Care*: less than 30 min Quality Metrics Clinical Quality Measures During this hospital stay, did patient experience: None Coding Level of Care Code Acute Fiscal Assistant for Chg Fwd Diagnoses Acute cholecystitis due to biliary calculus K80.00 Helicobacter pylori antibody positive R76.8 GERD (gastroesophageal reflux disease) K21.9 Anemia D64.9
[2019-08-04 09:45] VITALS: BP 124/77; PULSE 62; RESP 18; TEMP 36.8; O2SAT 96
== END 2019-08-04 09:46 | disposition home or self-care (01) ==
LOC: ER 06:23 → MEDSURG 11:21
PROVIDERS: Emergency Medicine; Admitting Provider Surgery; Visit Provider Surgery
PROC: 0FT44ZZ Resection of Gallbladder, Percutaneous Endoscopic Approach (ICD-10-PCS; CPT 47562; principal; 2019-08-03 16:00)
PROC: 0DJ08ZZ Inspection of Upper Intestinal Tract, Via Natural or Artificial Opening Endoscopic (ICD-10-PCS; CPT 43235; 2019-08-03 16:00)
DX: K80.10 Calculus of gallbladder with chronic cholecystitis without obstruction (principal); R76.8 Other specified abnormal immunological findings in serum; K21.9 Gastro-esophageal reflux disease without esophagitis; D64.9 Anemia, unspecified; F41.9 Anxiety disorder, unspecified; F32.9 Major depressive disorder, single episode, unspecified
CPT/HCPCS: 47562; 12345; 36415; 43239; 76705; 80053; 81001; 83690; 84484; 84703; 85025; 86677; 87077; 88304; 88305; 94640; 96365; 96367; 96372; 96375; 96376; 99283; 99285; G0378; J0330; J0690; J1100; J1644; J2001; J2250; J2270; J2405; J2543; J2704; J2710; J3010; J3490; J7030; J7614

== ENCOUNTER 2019-09-06 06:55 | Day surgery (SDC) | payer OTHER, SELFPAY ==
[2019-09-02 15:24] VITALS: BMI 41.1
[2019-09-06 07:19] VITALS: BP 148/99; PULSE 79; RESP 18; TEMP 36.6; O2SAT 100
--- NOTE | 2019-09-06 07:26 | ANES.PREANE2 ---
Pre-Anesthetic Assessment Pre-Anesthetic Assessment: Height/Weight: Height 1.63 m Weight 108.862 kg Temp Pulse Resp BP Pulse Ox 97.8 F 79 18 148/99 100 09/06/19 07:19 09/06/19 07:19 09/06/19 07:19 09/06/19 07:19 09/06/19 07:19 Preop Diagnosis: Prolapsed external hemorrhoid Proposed Procedure: Operation Date: 09/06/19 08:15 Proposed Procedures p Exam Under Anesthesia 41912 [id number] K64.5(Not Applicable) - Rashad Nettles MD s Hemorroidectomy(Not Applicable) - Rashad Nettles MD Last intake: Intake Last Liquid Date 09/05/19 Last Liquid Time 19:00 Last Solid Date 09/05/19 Last Solid Time 19:00 Social: Social History: No alcohol and No tobacco Exam: Pre-Anes Outpt Exam: alert, oriented x 3, clear to auscultation bilaterally and regular rate & rhythm Airway: Submandibular: WNL Cervical ROM: WNL MP: 2 Dentition: Other (teeth ok) History/ROS: No significant history except as noted Pulmonary: Pulmonary: None reported CV/HEM: CV/HEM: None reported : : None reported Hepatic: Hepatic: None reported GI: GI: GERD (occ) Metabolic: Metabolic: Morbid obesity Musc/skel: Musc/skel: None reported Neuropsych: Neuropsych: Anxiety Anesthetic Plan: ASA status: 2 Anesthesia: Anesthesia Evaluation and General Risk of > 500 ml blood loss (7ml/kg in children): No PFSH Anesthesia PFSH: Medical History MULUGETA (generalized anxiety disorder) GERD (gastroesophageal reflux disease) Helicobacter pylori (H. pylori) Surgical History History of cholecystectomy No pertinent past surgical history Social History Smoking and tobacco status: never smoked Alcohol intake: current Data Anesthesia Cardiac Studies: No Data to Display
[2019-09-06] MEDS: sodium chloride 0.9% 1,000 ML 30 ML IV (07:36)
[2019-09-06 07:44] LABS: OR HCG Qualitative Urine Negative (Negative)
--- NOTE | 2019-09-06 07:52 | W.PM.OPSUD ---
Surgery/Procedure H&P Update DATE OF PROCEDURE: September 06, 2019 DATE H&P PERFORMED: 09/01/19 H&P UPDATE INFORMATION: I have reviewed H&P completed within last 30 days, I have examined patient prior to procedure and No changes to prior documentation (Except that the patient is feeling better since she was started on antibiotics.) PREOP DIAGNOSIS: Prolapsed external hemorrhoid PRIMARY INDICATION FOR PROCEDURE: The same PLANNED PROCEDURE: Operation Date: 09/06/19 08:15 Proposed Procedures p Exam Under Anesthesia [id number] K64.5(Not Applicable) - Rashad Nettles MD s Hemorroidectomy(Not Applicable) - Rashad Nettles MD
[2019-09-06] MEDS: ciprofloxacin 400 MG/200 ML PREMIX 200 MG IV (08:03)
[2019-09-06] MEDS: metroNIDAZOLE IV 500 MG/100 ML PREMIX 100 MG IV (08:24)
--- NOTE | 2019-09-06 08:41 | PM.OP ---
Operative Report Date of procedure: September 06, 2019 Pre-op Diagnosis: Prolapsed external hemorrhoid Post-op diagnosis: same (Thrombosis of left lower lateral external hemorrhoid) Procedure Done: Examination under anesthesia and hemorrhoidectomy Left pudendal nerve block Specimens removed/disposition: Left lower lateral hemorrhoid Surgeon: Rashad Nettles Music Historian: technical solutions director Britney Circulating nurse Edwina Anesthesia: General (insurance examining clerk Ben) Estimated blood loss (mL): 5 Condition: stable Disposition: same day Brief History: This is a pleasant 39 years old female patient presented to my office with symptomatic and painful left lower lateral external hemorrhoid with concerning of thromboses and prolapse, as the hemorrhoid was pretty inflamed I elected to put the patient on antibiotics and plan for elective hemorrhoidectomy, patient did appropriately well and felt better with conservative measures with the plan for surgery. Informed consent per chart for examination under anesthesia and hemorrhoidectomy Procedure: Patient was identified in the holding area and was taken back to the operating room, which was first placed in supine position got intubated by anesthesia, prophylactic IV antibiotics were given per protocol,Time-out was done verifying the patient's name/date of /planned procedure and destination after the procedure, all were in agreement. Patient was placed in left lateral position were all pressure points were padded,Prep and drape was done thereafter under the usual sterile technique,started by pudendal nerve block on the left side , injecting Exparel of the left pudendal nerve block, guided by the examining finger towards the ischial spine on the left side, guided by the examining finger There were no anal masses or perianal sinuses or abscess formation otherwise. Anoscope was then introduced I was able to identify the internal/external left lower lateral hemorrhoid, I placed a wet 4 x 4 inside the anal canal to prevent stools from encroaching on the wound site, that was taken out at the end of the procedure. I did apply a hemostat at the origin of the hemorrhoidal tissue, onto the left lower lateral hemorrhoid,using harmonic scalpel device for dissection safeguarding the external anal sphincter after that I was able to deliver the specimens to the circulating nurse hemostasis was achieved ,and running 2-0 chromic catgut suture was applied to approximate the edges of the hemorrhoidectomy site, that was done after thorough irrigation of the wound with warm normal saline . At that point after removal of the 4 x 4'sx1.I applied a piece of Xeroform impregnated lidocaine 2% jelly at the site of the wound and a piece of Surgicel both were rolled up as a Cigar like and and 2-0 silk stitch was applied at the end that faces the exit of the anus as it will be easier to pull out later on, followed by application of ABD .,a surgical pants was then placed to hold the dressing in place. Count was completed at the end of the procedure, patient was then extubated and was taken to the recovery room in stable condition I was present for the whole entire procedure
[2019-09-06 08:51] VITALS: BP 142/98; PULSE 84; RESP 20; TEMP 36.9; O2SAT 100
[2019-09-06 08:55] VITALS: BP 144/92; PULSE 79; RESP 20; O2SAT 100
[2019-09-06 09:00] VITALS: BP 131/90; PULSE 73; RESP 17; TEMP 36.8; O2SAT 96
[2019-09-06 09:06] VITALS: BP 106/69; PULSE 77; RESP 16; TEMP 36.8; O2SAT 97
--- NOTE | 2019-09-06 09:11 | SUR.PHASEI ---
0904 PT AWAKE ALERT ASKING FOR COFFEE, COMPLAINS OF SLIGHT (PRESSURE) NO PAIN TO RECTAL AREA, PT INFORMED OF PACKING AND LARGE SOFT DRESSING PT TO OPS AWAKE ALERT DENIES PAIN AND NAUSEA , PT WANTING TO TEXT TO GET HER SHE LIVES [address] HANDOFF AT BEDSIDE.
[2019-09-06 09:26] VITALS: BP 113/66; PULSE 69; RESP 16; TEMP 36.8; O2SAT 98
[2019-09-06] MEDS: HYDROcodone-acetaminophen 5-325 mg Tablet 1 TAB PO (09:35)
== END 2019-09-06 10:44 | disposition home or self-care (01) ==
PROVIDERS: Anesthesiology; PCP Family Medicine; Visit Provider Surgery
PROC: (CPT 46255; principal; 2019-09-06 08:05)
PROC: (CPT 46255; 2019-09-06 08:05)
DX: K64.9 Unspecified hemorrhoids (principal); K64.5 Perianal venous thrombosis; K21.9 Gastro-esophageal reflux disease without esophagitis; E66.01 Morbid (severe) obesity due to excess calories; Z68.41 Body mass index [BMI] 40.0-44.9, adult
CPT/HCPCS: 46255; 12345; 81025; 84703; 88304; 96365; C9290; J0131; J0330; J0744; J1100; J2001; J2405; J2704; J3010; J3490; J7030; S0030

== ENCOUNTER 2020-01-11 23:00 | Emergency (ER) | payer OTHER, SELFPAY ==
[2020-01-11 23:07] VITALS: BP 143/80; PULSE 101; RESP 16; TEMP 36.8; O2SAT 100; BMI 36.6
[2020-01-12] VITALS (7 sets, daily range): BP systolic 110–166; BP diastolic 58–100; PULSE 69–77; RESP 14–17; O2SAT 93–99
--- NOTE | 2020-01-12 01:30 | ED_ITS ---
HPI - Headache General: Chief Complaint: Headache Stated Complaint: headache Time Seen by Provider: 01/12/20 01:20 Source: patient Mode of arrival: ambulatory Limitations: no limitations History of Present Illness: HPI Narrative: Cat is a nice 39-year-old female who comes in complaining of 8 days of a headache. She states the headache began gradually 8 days ago and felt like a typical headache to her. It was not sudden onset thunderclap-like. Patient states that she surprisingly woke up with a headache the next day. And then intermittently until 4 days ago she is had intermittent dizziness which she describes as room spinning dizziness. At times it made her vomit. She also had intermittent ringing in her right ear. She states she feels like her right ear is clogged up. She not had a fever, stiff neck or neck pain. She was seen by her primary care who examined her and did not think that she had any type of ear infection but thought she should be tested for Covid which ended up coming back negative. The patient went to an urgent care later and was told she may have eustachian tube dysfunction by nurse practitioner and was given a dose of steroids and placed on Flonase. Patient states that her headache is still not resolved and today it is bifrontal in location. She does have photophobia and phonophobia. Denies any fevers or chills. She denies any visual changes. Associated symptoms: Reports nausea and vomiting; Deny chest pain, confusion, diaphoresis, fever(s), lightheadedness, malaise, pre-syncope, rash or syncope Review of Systems Const: Denies: fever(s), chills, body aches, fatigue, malaise or diaphoresis Eyes: Denies: change in vision, blurry vision, photophobia, eye discomfort, eye discharge, eye redness or yellow eyes ENMT: Denies: throat pain, odynophagia, hoarseness, swelling of lips/tongue, ear or mastoid pain, ear discharge, change in hearing or nasal discharge Card: Denies: chest pain, palpitations, irregular heart rhythm, edema, lightheadedness, syncope, pre-syncope, dyspnea on exertion or orthopnea Resp: Denies: dyspnea, productive cough, non-productive cough, wheezing, hemoptysis or chest congestion GI: Reports: nausea and vomiting; Denies: abdominal pain, hematemesis, coffee ground emesis, heartburn, diarrhea, constipation, GI cramping, hematochezia or melena : Denies: flank pain, dysuria, urinary frequency, urinary urgency or hematuria Musc: Denies: neck pain, back pain, extremity pain, extremity swelling, joint pain, joint swelling, joint redness, joint warmth or joint stiffness Skin/Breast: Denies: rash, pruritus, erythema, skin pain or skin tenderness Neuro: Reports: headache(s); Denies: numbness in extremities, weakness in extremities, sensory changes, lack of coordination, difficulty walking, dizziness, vertigo, confusion, Slurred speech present or seizure-like activity Ki/Lymph: Denies: easy bruising, easy bleeding, petechiae, purpura or enlarged lymph nodes All/Imm: Denies: urticaria, throat swelling, tongue swelling, facial swelling or acute wheezing PFSH ED PFSH: Medical History (Updated 01/12/20 @ 05:37 by Christal Pandya) MULUGETA (generalized anxiety disorder) GERD (gastroesophageal reflux disease) Helicobacter pylori (H. pylori) Surgical History History of cholecystectomy No pertinent past surgical history Social History Smoking and tobacco status: never smoked Alcohol intake: current Female Reproductive History: Date of last menstrual period: 01/11/20 Physical Exam Const: COMMON NORMALS: no acute distress, patient oriented x3, no limitations and alert GENERAL APPEARANCE: cooperative HENMT: COMMON NORMALS: normocephalic, atraumatic, external ears normal, EAC's normal, TM's normal bilaterally and Normal external nose present HEAD & SCALP: normal to inspection, normocephalic and atraumatic FACE & SINUS: normal facial exam and face symmetric NOSE: Normal external nose present and Normal nares present EXTERNAL EAR: Yes external ears normal EXTERNAL AUDITORY CANAL: EAC's normal TYMPANIC MEMBRANE: TM's normal bilaterally MOUTH: Normal oral and palatal mucosa present, lip normal and tongue normal Eye: COMMON NORMALS: Equal, round and reactive pupils present and conjunctivae normal GENERAL EYE: appearance normal, both eyes and all related structures ALIGNMENT: Yes alignment normal PERIORBITAL: periorbital findings normal EYELID: eyelids normal CONJUNCTIVA: Yes conjunctivae normal SCLERA: sclerae normal PUPIL: Yes Equal, round and reactive pupils present Neck/C-Spine: COMMON NORMALS: full ROM, no lymphadenopathy, supple, no meningeal signs and no JVD GENERAL: Yes normal visual inspection and Yes trachea midline Chest: COMMONS NORMALS: normal inspection of the chest and normal palpation of entire chest wall Resp: COMMON NORMALS: normal respiratory effort, No retractions, No use of accessory muscles and clear to auscultation bilaterally EFFORT & INSPECTION: Yes able to speak in complete sentences and Yes symmetric chest movement AUSCULTATION: clear to auscultation bilaterally, no crackles, no rales, no rhonchi and no wheezes Cardio: COMMON NORMALS: no JVD, regular rate, regular rhythm, S1 normal heart sound present and S2 normal heart sound present RATE: regular rate RHYTHM: regular rhythm HEART SOUNDS: S1 normal heart sound present, S2 normal heart sound present, no click, no gallops, no murmurs and no rubs GI: COMMON NORMALS: Soft to palpation and No hepatosplenomegaly present PALPATION: Yes Soft to palpation, No Tenderness to palpation present (GI), No Guarding due to palpation present (GI), No Rigid due to palpation, Yes No hepatosplenomegaly present, No Hernia present, No Palpable mass present and No Pulsatile mass present : COMMON NORMALS: Yes no CVA tenderness BLADDER/KIDNEY EXAM: Yes no CVA tenderness EXTERNAL FEMALE EXAM: No Hernia present Back/Pelvis: COMMON NORMALS: no CVA tenderness, thoracic and lumbar spine normal to inspection, no thoracic nor lumbar tenderness and thoraco-lumbar ROM normal Extremity: COMMON NORMALS: normal to inspection, full ROM, capillary refill normal, no joint enlargement, no clubbing, cyanosis or edema and no calf tenderness Neuro: COMMON NORMALS: patient oriented x3, CN's II-XII intact bilaterally, moves all extremities, no focal motor deficits and no sensory deficits noted SENSORIUM/ORIENTATION: Yes alert MENINGEAL SIGNS: Yes no meningeal signs SPEECH: speech normal Psych: COMMON NORMALS: mental status grossly normal, Normal thought process present, cooperative, normal affect, speech normal and activity/motor behavior normal SPEECH: Yes normal speech THOUGHT PROCESS: Normal thought process present Skin: COMMON NORMALS: no rashes or lesions noted, turgor normal, no jaundice, no petechiae and no mottling GENERAL SKIN EXAM: no rashes or lesions noted and turgor normal Course ED course: 0445 -patient states her headache is gone at this time. Vital Signs: Vital signs: Vital Signs Temperature 98.2 F 01/11/20 23:07 Pulse Rate 72 01/12/20 04:30 Respiratory Rate 14 01/12/20 03:33 Blood Pressure 111/69 01/12/20 04:30 Pulse Oximetry 93 01/12/20 04:30 MDM - Headache MDM Narrative: Medical decision making narrative: Mrs. Donald is a nice 39-year-old female who comes in with a headache that is lasted for the past 8 days. The headache is described as a dull ache that started globally but intermittently has been more severe behind the right ear. The patient did have some tinnitus and room spinning dizziness off and on but those symptoms have been gone for the past 4 days. Her hearing has been muffled at times. At this time I feel no temporal artery nodularity, she has no jaw claudication with eating and no further room spinning dizziness. At no time as the patient had a headache, neck pain/stiffness or rash. Patient is seen to nurse practitioners this week and she is been given a steroid injection and oral steroids. I am uncertain to what they were treating with these steroids. I have reviewed the case in full with Dr. Chapa who agrees with me this was likely labyrinthitis or vestibular neuronitis but her symptoms did not get better with steroids. Patient does have an elevated white count but I think this is likely due to the steroids given previously. Patient is never had any sudden onset thunderclap type headache or fever or neck pain or stiffness. I do not think that subarachnoid hemorrhage or meningitis are likely the cause. Dr. Chapa agrees with me even though the patient's sed rate and CRP are elevated the patient is young and has no other signs or symptoms of temporal arteriolitis. Secondary to the white count being elevated I did recommend and offer a lumbar puncture to the patient to definitively rule out meningitis but she declines. Patient was given a migraine cocktail and she feels much better. She wants to go home. I did review with her and her the risks of missed meningitis including or severe permanent disability but despite this she wants to go home. Patient is aware she can return anytime should she change her mind but at this time she is feeling better and like to be discharged. I will give her a dose of Decadron hopefully if she has to have further work-up this will confuse the issue with this is to prevent a rebound headache as Dr. Chapa thought this could be new onset of migraines. Lab Data: Attestation: I reviewed the patient's lab results. Labs: Lab Results 01/12/20 01/12/20 01/12/20 Range/Units 01:25 01:56 01:56 WBC Cancelled Corrected WBC Cancelled RBC Cancelled Hgb Cancelled Hct Cancelled MCV Cancelled MCH Cancelled MCHC Cancelled RDW Cancelled Plt Count Cancelled MPV Cancelled Gran % Cancelled Neut % (Auto) Cancelled Lymph % (Auto) Cancelled [place] % (Auto) Cancelled Eos % (Auto) Cancelled Baso % (Auto) Cancelled Neut # (Auto) Cancelled Lymph # (Auto) Cancelled [place] # (Auto) Cancelled Eos # (Auto) Cancelled Baso # (Auto) Cancelled Absolute Gran (aut o) Cancelled Nucleated RBC % (a uto) Cancelled Nucleated RBCs # Cancelled ESR 35 H (0-15) mm/hr Sodium 137 (136-145) mmol/L Potassium 5.4 H (3.5-5.1) mmol/L Chloride 101 (98-107) mmol/L Carbon Dioxide 26 (22-29) mmol/L Anion Gap 15.4 (5-19) BUN 10 (6-20) mg/dL Creatinine 0.6 (0.5-0.9) mg/dL GFR Calculation 112.5 (90-130) mL/min Glucose 111 (65-115) mg/dL Calculated Osmolal ity 284 L (285-295) mOsm/k g Calcium 9.2 (8.5-10.5) mg/dL Magnesium 1.9 (1.7-2.3) mg/dL Total Bilirubin 0.2 (0.15-1.2) mg/dL AST 47 H (0-32) U/L ALT 14 (0-33) U/L Alkaline Phosphata se 96 (35-105) IU/L C-Reactive Protein 16.8 H (0.0-4.9) mg/L Total Protein 8.2 (6.6-8.7) g/dL Albumin 4.1 (3.5-5.2) g/dL Globulin 4.1 (1.3-4.6) g/dL HCG, Qual (Negative) Urine Color (Yellow) Urine Appearance (CLEAR) Urine pH (5-7) Ur Specific Gravit y (1.005-1.030) Urine Protein (Negative) Urine Glucose (UA) (Normal) Urine Ketones (Negative) Urine Blood (Negative) Urine Nitrate (Negative) Urine Bilirubin (Negative) Urine Urobilinogen (Negative) mg/dL Ur Leukocyte Yaneth ase (Negative) 01/12/20 01/12/20 01/12/20 Range/Units 01:56 01:56 02:18 WBC 16.1 H Corrected WBC RBC 4.58 Hgb 9.0 L Hct 33.0 L MCV 72.1 L MCH 19.7 L MCHC 27.3 L RDW 17.7 H Plt Count 435 H MPV 10.1 Gran % Neut % (Auto) 65.0 Lymph % (Auto) 28.2 [place] % (Auto) 5.1 Eos % (Auto) 0.6 Baso % (Auto) 0.5 Neut # (Auto) 10.46 H Lymph # (Auto) 4.5 [place] # (Auto) 0.8 Eos # (Auto) 0.1 Baso # (Auto) 0.1 Absolute Gran (aut o) Nucleated RBC % (a uto) 0 Nucleated RBCs # 0.0 ESR (0-15) mm/hr Sodium (136-145) mmol/L Potassium (3.5-5.1) mmol/L Chloride (98-107) mmol/L Carbon Dioxide (22-29) mmol/L Anion Gap (5-19) BUN (6-20) mg/dL Creatinine (0.5-0.9) mg/dL GFR Calculation (90-130) mL/min Glucose (65-115) mg/dL Calculated Osmolal ity (285-295) mOsm/k g Calcium (8.5-10.5) mg/dL Magnesium (1.7-2.3) mg/dL Total Bilirubin (0.15-1.2) mg/dL AST (0-32) U/L ALT (0-33) U/L Alkaline Phosphata se (35-105) IU/L C-Reactive Protein (0.0-4.9) mg/L Total Protein (6.6-8.7) g/dL Albumin (3.5-5.2) g/dL Globulin (1.3-4.6) g/dL HCG, Qual Negative (Negative) Urine Color Yellow (Yellow) Urine Appearance Clear (CLEAR) Urine pH 7.0 (5-7) Ur Specific Gravit y 1.010 (1.005-1.030) Urine Protein Neg (Negative) Urine Glucose (UA) Norm (Normal) Urine Ketones Negative (Negative) Urine Blood Neg (Negative) Urine Nitrate Negative (Negative) Urine Bilirubin Neg (Negative) Urine Urobilinogen Norm (Negative) mg/dL Ur Leukocyte Yaneth ase Negative (Negative) Imaging Data^: CT Head: Radiologist's impression: [place] [address] CT Scan Report Signed Patient: Cat Donald Unit #: [id number] : 1980 Age/Sex: 39 / F ADM Date: 01/11/20 Loc: ER Room/Bed: Attending Dr: Ordering Provider/Ordering MD: Christal Pandya DO Date of Service: 01/12/20 Procedure(s): CT head wo con* [id number] Accession Number(s): [id number] Report Number: [id number] PROCEDURE INFORMATION: Exam: CT Head Without Contrast Exam date and time: 01/12/2020 2:02 AM Age: 39 years old Clinical indication: Pain; Headache not specified; Patient HX: Headache x 1 week TECHNIQUE: Imaging protocol: Computed tomography of the head without contrast. Radiation optimization: All CT scans at this facility use at least one of these dose optimization techniques: automated exposure control; mA and/or kV adjustment per patient size (includes targeted exams where dose is matched to clinical indication); or iterative reconstruction. COMPARISON: No relevant prior studies available. RADIATION DOSE METRICS: Total DLP (mGy-cm): 889.16 FINDINGS: Brain: No acute intracranial hemorrhage or mass effect. No definite acute infarct by CT. Cerebral ventricles: Ventricle size is normal for age. Bones/joints: No definite acute skull fracture. 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 Included paranasal sinuses otherwise appear essentially clear. Mastoid air cells: No significant acute finding. CT/CT head wo con* [id number] IMPRESSION: 1. No acute intracranial hemorrhage or mass effect. 2. Other findings discussed above. Radiation Dose CTDIVOL = (mGy): DLP = 889.16 (mGy-cm) Dictated By: Raza Dobbins MD Signed By: Raza Dobbins MD Signed Date/Time: 01/12/20511 DD/ 9 Discharge Plan Discharge Patient Disposition: Home Clinical Impression: Headache Qualifiers: Headache type: unspecified Headache chronicity pattern: acute headache Intractability: not intractable Qualified Code(s): R51.9 - Headache, unspecified Condition: Stable Prescriptions: No Action omeprazole 20 mg tablet,delayed release (DR/EC) 20 mg PO DAILY RF: 0 metronidazole [Flagyl] 500 mg tablet 500 mg PO BID Qty: 14 RF: 0 lidocaine HCl 2 % jelly 1 applic TOPICAL BID PRN (Reason: pain) Qty: 30 RF: 0 ciprofloxacin HCl [Cipro] 500 mg tablet 500 mg PO BID Qty: 14 RF: 0 sertraline [Zoloft] 50 mg tablet 50 mg PO DAILY RF: 0 [place] 5-325 mg tablet 1 tab PO Q6H PRN (Reason: pain) Qty: 28 RF: 0 loratadine 10 mg PO DAILY RF: 0 Discharge Orders: Discharge Order (Routine); Ordered 01/12/20 Ordered By: Christal Pandya Referrals: Zhanna Richard DO [Primary Care Provider] - 1-3 days Discharge Activity: Increase activity as tolerated Patient Instructions: Acute Headache (ED) Activity Restrictions/Additional Instructions: Please return to the ER immediately for any of the signs or symptoms listed on your discharge instruction sheets, worsening/changing of your symptoms, you are not getting better as quickly as expected, or for ANY other cause or concerns. I have recommended and offered to perform a lumbar puncture/spinal tap to definitively rule out meningitis as a cause of your symptoms but you have declined. As we discussed meningitis can be life-threatening or causes severe permanent disability so if you change your mind, your symptoms return, you develop a fever, develop a rash or have any other concerns please return to the ER immediately for recheck. Stop the steroids you were previously prescribed. Be certain to follow-up with Dr. Richard in her office soon as possible for recheck. Stand Alone Forms: Work/School Release Coding Level of Care Code ED Systems Management Consultant for Chg Fwd Exam Comprehensive
[2020-01-12 02:04] LABS: Basophils # 0.1 10^3/uL (0.0-0.1); Basophils % 0.5 %; Eosinophils # 0.1 10^3/uL (0.0-0.8); Eosinophils % 0.6 %; Lymphocytes # 4.5 10^3/uL (0.8-4.8); Lymphocytes % 28.2 %; Mean Corpuscular HGB Conc 27.3 g/dL (30.0-36.0); Mean Corpuscular Hemoglobin 19.7 pg (28.0-34.0); Mean Corpuscular Volume 72.1 fL (81-99); Mean Platelet Volume 10.1 fL (7.4-10.4); Monocytes # 0.8 10^3/uL (0.2-0.9); Monocytes % 5.1 %; Neutrophils # 10.46 10^3/uL (1.8-7.7); Nucleated Red Blood Cells % 0 %; Platelet Count 435 10^3/cmm (130-400); Red Blood Count 4.58 10^6/uL (4.1-5.3); Red Cell Distribution Width 17.7 % (12.1-15.1); White Blood Count 16.1 10^3/uL (4.0-10.0)
[2020-01-12] MEDS: diphenhydrAMINE 50 mg/mL SDV 1mL 25 MG IVP ×2 (02:11→03:33)
[2020-01-12] MEDS: sodium chloride 0.9% 1,000 ML 999 ML IV (02:11)
[2020-01-12] MEDS: metoclopramide 5 mg/mL SDV 2 mL 10 MG IV (02:11)
[2020-01-12 02:16] LABS: HCG, Serum Qual Negative (Negative)
[2020-01-12 02:22] LABS: Add Urine Microscopic? NO
[2020-01-12 02:23] LABS: Albumin Level 4.1 g/dL (3.5-5.2); Blood Urea Nitrogen 10 mg/dL (6-20); C Reactive Protein 16.8 mg/L (0.0-4.9); Calcium 9.2 mg/dL (8.5-10.5); Carbon Dioxide 26 mmol/L (22-29); Chloride 101 mmol/L (98-107); Globulin 4.1 g/dL (1.3-4.6); Glomerular Filtration Rate 112.5 mL/min (90-130); Glucose 111 mg/dL (65-115); Magnesium 1.9 mg/dL (1.7-2.3); Osmolality Calculated 284 mOsm/kg (285-295); Sodium 137 mmol/L (136-145); Total Bilirubin 0.2 mg/dL (0.15-1.2); Total Protein 8.2 g/dL (6.6-8.7)
[2020-01-12 02:26] LABS: Anion Gap 15.4 (5-19)
[2020-01-12 02:27] LABS: Alanine Aminotransferase 14 U/L (0-33); Alkaline Phosphatase 96 IU/L (35-105); Aspartate Amino Transferase 47 U/L (0-32); Potassium 5.4 mmol/L (3.5-5.1)
[2020-01-12 02:28] LABS: Bilirubin Urine Neg (Negative); Blood Urine Neg (Negative); Glucose Urine UA Norm (Normal); Ketones Urine Negative (Negative); Nitrate Urine Negative (Negative); Protein Urine Neg (Negative); Urine Appearance Clear (CLEAR); Urine Color Yellow (Yellow)
[2020-01-12 02:29] LABS: Leukocyte Esterase Urine Negative (Negative); Urobilinogen Urine Norm (Negative)
[2020-01-12 03:01] LABS: Erythrocyte Sedimentation Rate 35 mm/hr (0-15)
[2020-01-12] MEDS: dexamethasone 4 mg/mL INJ 10 MG IVP (05:57)
== END 2020-01-12 06:00 | disposition home or self-care (01) ==
PROVIDERS: Emergency Provider Emergency Medicine; PCP Family Medicine
DX: R51.9 Headache, unspecified (principal)
CPT/HCPCS: 12345; 70450; 80053; 81003; 83735; 84703; 85025; 85651; 86140; 96361; 96374; 96375; 96376; 99283; J0131; J1100; J1200; J2765; J7030

== ENCOUNTER 2021-01-17 12:08 | Outpatient (CLI) | payer OTHER, SELFPAY ==
[2021-01-17 12:19] VITALS: BP 136/80; PULSE 77; RESP 16; TEMP 37.1; BMI 38.2
--- NOTE | 2021-01-17 12:21 | PC.NURSE ---
Assessments by AG/charted by SYD
--- NOTE | 2021-01-17 13:47 | PC.NURSE ---
Attempts by VR, MM and successful attempt Dr Esparza
[2021-01-17 14:03] VITALS: BP 129/80; PULSE 80; RESP 17; TEMP 36.6; O2SAT 99
[2021-01-17 15:04] VITALS: BP 134/86; PULSE 80; RESP 16; TEMP 36.2; O2SAT 99
== END 2021-01-17 12:09 | disposition home or self-care (01) ==
LOC: OPS 12:10
PROVIDERS: PCP Family Medicine; Visit Provider Nurse Practitioner Family
DX: U07.1 COVID-19 (principal)
CPT/HCPCS: 96365